=== PATIENT | female | born 1955 | race Caucasian/White ===

== ENCOUNTER 2018-01-22 05:43 | Emergency (ER) | payer OTHER ==
[~2018-01-22] VITALS: Ht 154.9 cm; Wt 75.3 kg
[~2018-01-22 05:43] MED LIST: CELEBREX200 MG; DEXILANT60 MG PO; FISH OIL 1,0001 EAC2 PO; FLAGYL500 MG PO; LEVAQUIN500 MG PO; PANTOPRAZOLE SO40 MG PO; SYNTHROID112 MCG PO; TAGAMET; VALACYCLOVIR500 MG PO; VIT B12 PO; [UNRECOGNIZED DRUG - OTHER]
[2018-01-22] MEDS ORDERED: MORPHINE SULFATE 2 MG/ML SYR IV STA (06:01)
[2018-01-22] MEDS ORDERED: ONDANSETRON HCL INJ 2 MG/ML VIAL IV STA (06:01)
[2018-01-22] MEDS ORDERED: PANTOPRAZOLE 40 MG 10ML VIAL IV STA (06:01)
[2018-01-22] MEDS ORDERED: SODIUM CHLORIDE 0.9% 1000ML 1,000 ML IV STA (06:01)
[2018-01-22] MEDS ORDERED: DIATRIZOATE MEGL/DIATRIZOA SOD 30 ML BTL PO ONE (06:10)
[2018-01-22 06:22] LABS: BASOPHILS # (AUTO) 0.1 (0.0-0.1); BASOPHILS % 1.2 % (0.0-1.0); EOSINOPHILS # (AUTO) 0.3 (0.0-0.4); EOSINOPHILS % 4.8 % (0.0-6.0); HEMATOCRIT 41.1 % (34.2-44.1); HEMOGLOBIN 13.3 g/dL (12.0-16.0); LYMPHOCYTES # (AUTO) 1.6 (1.0-3.2); LYMPHOCYTES % 27.4 % (18.0-39.1); MEAN CORPUSCULAR HEMOGLOBIN 28.4 pg (28-32); MEAN CORPUSCULAR HGB CONC 32.4 g/dL (31-35); MEAN CORPUSCULAR VOLUME 87.8 fL (81-99); MONOCYTES # (AUTO) 0.5 (0.2-0.8); MONOCYTES % 8.9 % (4.4-11.3); NEUTROPHILS # (AUTO) 3.4 (2.1-6.9); NEUTROPHILS % 57.4 % (38.7-80.0); PLATELET COUNT 285 x10e3/uL (140-360); RED BLOOD COUNT 4.68 x10e6/uL (3.6-5.1); RED CELL DISTRIBUTION WIDTH 12.8 % (11.7-14.4)
[2018-01-22 06:49] LABS: INR 0.82; PROTHROMBIN TIME 12.1 seconds (11.9-14.5)
[2018-01-22 06:53] LABS: ALANINE AMINOTRANSFERASE 19 IU/L (0-55); ALBUMIN 3.7 g/dL (3.5-5.0); ALBUMIN/GLOBULIN RATIO 1.1 (0.8-2.0); ALKALINE PHOSPHATASE 101 IU/L (40-150); AMYLASE 28 U/L (25-125); ANION GAP 10.2 mmol/L (8-16); BLOOD UREA NITROGEN 14 mg/dL (7-26); BUN/CREATININE RATIO 17 (6-25); CALCIUM 8.4 mg/dL (8.4-10.2); CARBON DIOXIDE 25 mmol/L (22-29); CHLORIDE 106 mmol/L (98-107); CREATINE KINASE 66 IU/L (29-168); CREATININE, SERUM 0.84 mg/dL (0.57-1.11); EST GLOMERULAR FILTRATION RATE > 60 ML/MIN (60-); GLUCOSE 132 mg/dL (74-118); LIPASE 19 U/L (8-78); MAGNESIUM 1.7 MG/DL (1.3-2.1); POTASSIUM 4.2 mmol/L (3.5-5.1); SODIUM 137 mmol/L (136-145)
[2018-01-22 07:05] LABS: BILIRUBIN,URINE NEGATIVE (NEGATIVE); CLARITY,URINE SL CLOUDY (CLEAR); COLOR,URINE YELLOW (YELLOW); KETONES,URINE NEGATIVE (NEGATIVE); LEUKOCYTE ESTERASE ,URINE 2+ (NEGATIVE); NITRITE,URINE NEGATIVE (NEGATIVE); PROTEIN,URINE DIPSTICK NEGATIVE (NEGATIVE); URINE UROBILINOGEN 0.2 mg/dL (0.2 - 1)
[2018-01-22 07:18] LABS: BACTERIA,URINE RARE /HPF; EPITHELIAL CELLS,URINE MODERATE /LPF; TRANSITIONAL EPI CELLS,URINE FEW
[2018-01-22] MEDS ORDERED: DICYCLOMINE HCL 20 MG/2 ML VIAL IM ONE (08:00)
[2018-01-22] MEDS ORDERED: MORPHINE SULFATE INJ 4 MG/ML INJ ONE (08:25)
--- NOTE | 2018-01-22 08:26 | Diagnostic Imaging Report ---
PROCEDURE: CT ABDOMEN AND PELVIS WITH CONTRAST TECHNIQUE: The abdomen and pelvis were scanned utilizing a multidetector helical scanner from the diaphragm to the lesser trochanter after the IV administration of 100 cc of Isovue 370 and the oral administration of Gastrografin. Coronal and sagittal multiplanar reformations were obtained. COMPARISON: 01/31/2013. INDICATIONS: MID EPIGASTRIC PAIN FINDINGS: LOWER THORAX: Normal. HEPATOBILIARY: No focal hepatic lesion or intrahepatic biliary ductal dilatation. The gallbladder is unremarkable. SPLEEN: No splenomegaly. PANCREAS: Course calcifications in the pancreatic head and proximal body. Questionable mild pancreatic ductal dilatation, though evaluation is limited secondary to degree of parenchymal atrophy. No focal mass. ADRENALS: No adrenal nodules. KIDNEYS/URETERS: No hydronephrosis, stones, or solid mass lesions. PELVIC ORGANS/BLADDER: The urinary bladder is unremarkable. The uterus is not identified and has presumably been removed. No adnexal mass. PERITONEUM / RETROPERITONEUM: No ascites. No pneumoperitoneum. LYMPH NODES: No pelvic sidewall, retroperitoneal, or mesenteric lymphadenopathy. VESSELS: The abdominal aorta, major branch vessels, and iliac arterial systems are well-visualized and patent, without aneurysmal dilatation. The portal vein, splenic vein, and central superior mesenteric vein are patent. GI TRACT: The large bowel shows no evidence of distention or wall thickening. Enteric contrast is noted throughout. The appendix is not identified and may have been removed. No right lower quadrant inflammation. No small bowel dilatation to suggest obstruction. Interval development of a moderate sliding hiatal hernia. BONES AND SOFT TISSUES: No focal soft tissue abnormalities. No osseous destructive lesions. Degenerative disc changes of the lumbar spine. IMPRESSION: No acute intra-abdominal or pelvic CT abnormalities. Findings of chronic pancreatitis. Interval development of a moderate sliding hiatal hernia. Dictated by: Stewart Romo M.D. on 01/22/2018 at 8:35 Electronically approved by: Stewart Romo M.D. on 01/22/2018 at 8:35
--- NOTE | 2018-01-22 08:28 | Diagnostic Imaging Report ---
PROCEDURE: CHEST SINGLE (PORTABLE) COMPARISON: None. INDICATIONS: ABDOMEN PAIN FINDINGS: Lungs are well-inflated. No focal airspace consolidation, pleural effusion, or pneumothorax. Cardiomediastinal contour and pulmonary vasculature are within normal limits for portable, AP technique. No acute osseous abnormality. CONCLUSION: No acute cardiopulmonary abnormality. Dictated by: Stewart Romo M.D. on 01/22/2018 at 8:36 Electronically approved by: Stewart Romo M.D. on 01/22/2018 at 8:36
[2018-01-22 09:50] VITALS: BP 131/84
[2018-01-22] MEDS ORDERED: IOPAMIDOL 370 MG/ML 200 ML INFUS..BTL INJ ONE (10:37)
[2018-01-22] MEDS ORDERED: SODIUM CHLORIDE 0.9% 50ML 50 ML ONE (10:37)
== END 2018-01-22 09:52 | disposition home or self-care (01) ==
LOC: ER 05:43
DX: K29.70 Gastritis, unspecified, without bleeding (principal); N39.0 Urinary tract infection, site not specified; K86.1 Other chronic pancreatitis; K21.9 Gastro-esophageal reflux disease without esophagitis; E03.9 Hypothyroidism, unspecified
CPT/HCPCS: 36415; 71045; 74177; 80053; 81001; 82150; 82550; 82553; 83690; 83735; 83880; 84484; 85025; 85610; 85730; 87086; 93005; 99283; J0500; J2270; J2405; J7030; Q9967

== ENCOUNTER → 2020-10-14 | Outpatient (CLI) | payer OTHER ==
[~2020-10-14] MED LIST changes: +SUCRALFATE1 GM PO
== END ==
LOC: DX 10:11
PROVIDERS: ATTEND Surgery
DX: K44.9 Diaphragmatic hernia without obstruction or gangrene (principal); K21.9 Gastro-esophageal reflux disease without esophagitis
CPT/HCPCS: 74246; U0002

== ENCOUNTER 2020-12-02 11:00 | Inpatient (IN) | payer MEDICARE, OTHER ==
[2020-11-30 13:08] LABS: BASOPHILS # (AUTO) 0.1 (0.0-0.1); BASOPHILS % 0.6 % (0.0-1.0); EOSINOPHILS # (AUTO) 0.3 (0.0-0.4); EOSINOPHILS % 3.9 % (0.0-6.0); HEMATOCRIT 38.4 % (34.2-44.1); HEMOGLOBIN 12.2 g/dL (12.0-16.0); LYMPHOCYTES # (AUTO) 1.9 (1.0-3.2); LYMPHOCYTES % 23.2 % (18.0-39.1); MEAN CORPUSCULAR HEMOGLOBIN 28.7 pg (28-32); MEAN CORPUSCULAR HGB CONC 31.8 g/dL (31-35); MEAN CORPUSCULAR VOLUME 90.4 fL (81-99); MONOCYTES # (AUTO) 0.6 (0.2-0.8); MONOCYTES % 7.3 % (4.4-11.3); NEUTROPHILS # (AUTO) 5.3 (2.1-6.9); NEUTROPHILS % 64.8 % (38.7-80.0); PLATELET COUNT 262 x10e3/uL (140-360); RED BLOOD COUNT 4.25 x10e6/uL (3.6-5.1); RED CELL DISTRIBUTION WIDTH 12.7 % (11.7-14.4)
[2020-11-30 13:25] LABS: ANION GAP 13.8 mmol/L (8-16); CALCIUM 8.8 mg/dL (8.4-10.2); CREATININE, SERUM 0.83 mg/dL (0.57-1.11); POTASSIUM 4.8 mmol/L (3.5-5.1)
[~2020-12-02] VITALS: Ht 172.7 cm; Wt 77.6 kg
[~2020-12-02 11:00] MED LIST changes: +LIDOCAINE 1% W/EPINEPHRINE 20 ML VIAL ONE
[2020-12-02] MEDS ORDERED: BUPIVACAINE HCL 0.25% 10ML MPF VIAL INJ ONE (13:00)
[2020-12-02] MEDS ORDERED: SEVOFLURANE INHAL SOLN 250 ML PEN BTL ONE (13:43)
[2020-12-02] MEDS ORDERED: ONDANSETRON HCL INJ 2MG/ML 2ML 2 MG/ML VIAL ONE (13:43)
[2020-12-02] MEDS ORDERED: NEOSTIGMINE 1 MG/ML 10ML VIAL ONE (13:43)
[2020-12-02] MEDS ORDERED: DEXAMETHASONE SOD PHOS INJ 4 MG/ML VIAL ONE (13:43)
[2020-12-02] MEDS ORDERED: LIDOCAINE HCL 2% LOCAL INJ 5 ML SDV VIAL INJ ONE (13:43)
[2020-12-02] MEDS ORDERED: ROCURONIUM BROMIDE 10 MG/ML 5ML VIAL IV ONE (13:43)
[2020-12-02] MEDS ORDERED: KETOROLAC TROMETHAMINE 30 MG/ML VIAL ONE (13:43)
[2020-12-02] MEDS ORDERED: GLYCOPYRROLATE INJ 0.2 MG/ML VIAL ONE (13:43)
[2020-12-02] MEDS ORDERED: PROPOFOL IV EMULSION 10 MG/ML 20 ML VIAL ONE (13:43)
[2020-12-02] MEDS ORDERED: POVIDONE IODINE 0.05% 0.05 % ML PO ONE (13:43)
[2020-12-02] MEDS: FENTANYL CITRATE/PF 100MCG/2 ML INJ ONE ×2 (13:50→14:54)
[2020-12-02] MEDS: ONDANSETRON HCL INJ 2MG/ML 2ML 2 MG/ML VIAL IV PRN ×3 (14:05→22:34)
[2020-12-02] MEDS: SODIUM CHLORIDE 0.9% 250ML IRRIG IR SCH ×3 (14:30→21:25)
[2020-12-02 14:59] VITALS: BP 149/74
[2020-12-02 15:00] VITALS: BP 149/74
[2020-12-02] MEDS: SODIUM CHLORIDE 0.9% 1000ML 1,000 ML IV SCH (15:00)
[2020-12-02] MEDS ORDERED: ACETAMINOPHEN 1000 MG/100 ML IV PRN (16:00)
[2020-12-02 16:39] VITALS: BP 151/73
[2020-12-02] MEDS: HYDROMORPHONE 1MG/1ML INJ IV PRN ×3 (18:30→23:48)
[2020-12-02 20:00] VITALS: BP 142/71
[2020-12-02 20:05] VITALS: BP 142/71
[2020-12-02] MEDS: Cefazolin 1 GM in SODIUM CHLORIDE 0.9% 50ML 50 ML IV SCH (20:45)
[2020-12-02] MEDS: CHLORASEPTIC SPRAY 177 ML BTL MM PRN ×2 (20:57→23:37)
[2020-12-03] VITALS (8 sets, daily range): BP systolic 131–159; BP diastolic 56–79
[2020-12-03] MEDS: SODIUM CHLORIDE 0.9% 1000ML 1,000 ML IV SCH ×4 (00:20→21:34)
[2020-12-03] MEDS: HYDROMORPHONE 1MG/1ML INJ IV PRN (01:00)
[2020-12-03] MEDS: SODIUM CHLORIDE 0.9% 250ML IRRIG IR SCH ×6 (01:09→20:00)
[2020-12-03] MEDS: ONDANSETRON HCL INJ 2MG/ML 2ML 2 MG/ML VIAL IV PRN ×2 (03:44→21:48)
[2020-12-03] MEDS: Cefazolin 1 GM in SODIUM CHLORIDE 0.9% 50ML 50 ML IV SCH (03:44)
[2020-12-03] MEDS: CHLORASEPTIC SPRAY 177 ML BTL MM PRN (03:44)
[2020-12-03] MEDS ORDERED: PROMETHAZINE 12.5MG/ NACL 0.9% 12.5 MG/50 ML BAG IV PRN (08:00)
[2020-12-03 10:07] LABS: BASOPHILS % 0.1 % (0.0-1.0); HEMATOCRIT 36.5 % (34.2-44.1); HEMOGLOBIN 11.8 g/dL (12.0-16.0); LYMPHOCYTES % 6.2 % (18.0-39.1); MEAN CORPUSCULAR HEMOGLOBIN 28.9 pg (28-32); MEAN CORPUSCULAR HGB CONC 32.3 g/dL (31-35); MEAN CORPUSCULAR VOLUME 89.5 fL (81-99); MONOCYTES # (AUTO) 0.8 (0.2-0.8); MONOCYTES % 4.9 % (4.4-11.3); NEUTROPHILS # (AUTO) 14.1 (2.1-6.9); NEUTROPHILS % 88.1 % (38.7-80.0); PLATELET COUNT 247 x10e3/uL (140-360); RED BLOOD COUNT 4.08 x10e6/uL (3.6-5.1); RED CELL DISTRIBUTION WIDTH 12.6 % (11.7-14.4)
[2020-12-03 11:58] LABS: CALCIUM 8.3 mg/dL (8.4-10.2); CREATININE, SERUM 0.74 mg/dL (0.57-1.11)
[2020-12-03] MEDS: ACETAMINOPHEN 1000 MG/100 ML IV PRN ×2 (15:30→21:34)
[2020-12-03] MEDS: ZOLPIDEM TARTRATE 10 MG TAB PO PRN (21:34)
[2020-12-04] VITALS (7 sets, daily range): BP systolic 111–148; BP diastolic 59–76
[2020-12-04] MEDS: ACETAMINOPHEN 1000 MG/100 ML IV PRN ×2 (07:29→20:45)
[2020-12-04] MEDS: SODIUM CHLORIDE 0.9% 1000ML 1,000 ML IV SCH ×2 (07:29→16:12)
[2020-12-04 15:29] LABS: BASOPHILS # (AUTO) 0.1 (0.0-0.1); BASOPHILS % 0.7 % (0.0-1.0); EOSINOPHILS # (AUTO) 0.3 (0.0-0.4); EOSINOPHILS % 3.6 % (0.0-6.0); HEMATOCRIT 37.8 % (34.2-44.1); HEMOGLOBIN 11.9 g/dL (12.0-16.0); LYMPHOCYTES # (AUTO) 1.4 (1.0-3.2); MEAN CORPUSCULAR HEMOGLOBIN 28.7 pg (28-32); MEAN CORPUSCULAR HGB CONC 31.5 g/dL (31-35); MEAN CORPUSCULAR VOLUME 91.3 fL (81-99); MONOCYTES # (AUTO) 0.6 (0.2-0.8); MONOCYTES % 7.2 % (4.4-11.3); NEUTROPHILS # (AUTO) 6.3 (2.1-6.9); NEUTROPHILS % 72.3 % (38.7-80.0); PLATELET COUNT 228 x10e3/uL (140-360); RED BLOOD COUNT 4.14 x10e6/uL (3.6-5.1); RED CELL DISTRIBUTION WIDTH 12.9 % (11.7-14.4)
[2020-12-04 15:45] LABS: ANION GAP 14.7 mmol/L (8-16); CALCIUM 8.5 mg/dL (8.4-10.2); CREATININE, SERUM 0.78 mg/dL (0.57-1.11); POTASSIUM 3.7 mmol/L (3.5-5.1)
[2020-12-04] MEDS: KETOROLAC TROMETHAMINE 30 MG/ML VIAL IV PRN (20:20)
[2020-12-04] MEDS: ZOLPIDEM TARTRATE 10 MG TAB PO PRN (20:45)
[2020-12-05] VITALS: BP 126/63
[2020-12-05 04:00] VITALS: BP 137/72
[2020-12-05 07:41] VITALS: BP 141/66
[2020-12-05 08:13] VITALS: BP 141/66
[2020-12-05 08:15] LABS: BASOPHILS # (AUTO) 0.1 (0.0-0.1); BASOPHILS % 0.7 % (0.0-1.0); EOSINOPHILS # (AUTO) 0.5 (0.0-0.4); EOSINOPHILS % 5.7 % (0.0-6.0); HEMATOCRIT 36.9 % (34.2-44.1); HEMOGLOBIN 11.7 g/dL (12.0-16.0); LYMPHOCYTES # (AUTO) 1.6 (1.0-3.2); LYMPHOCYTES % 18.9 % (18.0-39.1); MEAN CORPUSCULAR HEMOGLOBIN 28.7 pg (28-32); MEAN CORPUSCULAR HGB CONC 31.7 g/dL (31-35); MEAN CORPUSCULAR VOLUME 90.7 fL (81-99); MONOCYTES # (AUTO) 0.7 (0.2-0.8); MONOCYTES % 8.8 % (4.4-11.3); NEUTROPHILS # (AUTO) 5.4 (2.1-6.9); NEUTROPHILS % 65.7 % (38.7-80.0); PLATELET COUNT 234 x10e3/uL (140-360); RED BLOOD COUNT 4.07 x10e6/uL (3.6-5.1); RED CELL DISTRIBUTION WIDTH 12.9 % (11.7-14.4)
[2020-12-05 08:35] LABS: CALCIUM 8.6 mg/dL (8.4-10.2); CREATININE, SERUM 0.78 mg/dL (0.57-1.11)
[2020-12-05] MEDS: ACETAMINOPHEN 1000 MG/100 ML IV PRN (09:05)
[2020-12-05 11:25] VITALS: BP 140/66
[2020-12-05] MEDS: KETOROLAC TROMETHAMINE 30 MG/ML VIAL IV PRN (11:54)
[2020-12-05 15:34] VITALS: BP 144/74
== END 2020-12-05 17:42 | disposition home or self-care (01) | DRG 328 ==
LOC: OR 11:00 → PACU V 13:20 → MED/SURG 14:28
PROVIDERS: ADMIT Surgery; ATTEND Surgery
PROC: 0DV40ZZ Restriction of Esophagogastric Junction, Open Approach (ICD-10-PCS; 2020-12-02)
PROC: 0BQT0ZZ Repair Diaphragm, Open Approach (ICD-10-PCS; principal; 2020-12-02 10:29)
DX: K21.9 Gastro-esophageal reflux disease without esophagitis (principal); K44.9 Diaphragmatic hernia without obstruction or gangrene; Z20.822 Contact with and (suspected) exposure to COVID-19; F41.9 Anxiety disorder, unspecified; E03.9 Hypothyroidism, unspecified
CPT/HCPCS: 36415; 71046; 80048; 85025; 93005; 96360; 96361; C1766; J0690; J1100; J1170; J1885; J2001; J2405; J2550; J2710; J3010; J7030; U0002

== ENCOUNTER 2021-02-07 07:50 | Emergency (ER) | payer MEDICARE, OTHER ==
[~2021-02-07] VITALS: Ht 152.4 cm; Wt 72.6 kg
[~2021-02-07 07:50] MED LIST changes: -LIDOCAINE 1% W/EPINEPHRINE 20 ML VIAL ONE
[2021-02-07] MEDS ORDERED: ULTRAM 50MG50 MG PO (09:16)
== END 2021-02-07 09:39 | disposition home or self-care (01) ==
LOC: FSED 08:10
DX: S83.92XA Sprain of unspecified site of left knee, initial encounter (principal); S93.402A Sprain of unspecified ligament of left ankle, initial encounter; S90.02XA Contusion of left ankle, initial encounter; W01.0XXA Fall on same level from slipping, tripping and stumbling without subsequent striking against object, initial encounter; Y93.01 Activity, walking, marching and hiking; Y92.015 Private garage of single-family (private) house as the place of occurrence of the external cause; E03.9 Hypothyroidism, unspecified; K21.9 Gastro-esophageal reflux disease without esophagitis; G47.00 Insomnia, unspecified; Z96.653 Presence of artificial knee joint, bilateral
CPT/HCPCS: 99283